=== PATIENT | male | born 1990 | race American Indian/Alaskan Native ===

== ENCOUNTER 2019-03-02 07:13 | Emergency (ER) | payer OTHER ==
[2019-03-02 07:20] VITALS: BP 125/67
--- NOTE | 2019-03-02 07:43 | Emergency Department Report ---
HPI - General Chief Complaint: Dental/Oral Time Seen by Provider: 03/02/19 07:26 - HPI HPI: Patient comes to the ER today complaining of left lower dental pain. He does have a dentist but he cannot get an appointment for several months. He states he knows he needs antibiotics wouldn't want treatment is dental infection. There is no abscess. There is no pharyngeal exudates. ABCs are intact he is afebrile. He is controlling secretions and taking by mouth. ED Past Medical Hx - Past Medical History Previous Medical History?: No - Surgical History Past Surgical History?: No - Social History Smoking Status: Never Smoker Substance Use Type: None - Medications Home Medications: Home Medications Medication Instructions Recorded Confirmed Last Taken Type Amoxicillin [Trimox CAP] 500 mg PO BID #20 capsule 03/02/19 Unknown Rx Naproxen [Naprosyn] 500 mg PO BID PRN #20 tablet 03/02/19 Unknown Rx ED Review of Systems ROS: Stated complaint: (L) SIDE TOOTH ACHE/PAIN Other details as noted in HPI Comment: All other systems reviewed and negative Physical Exam - Physical Exam Vital Signs: Vital Signs 03/02/19 07:18 Temperature 98.1 F Pulse Rate 67 Respiratory 16 Rate Blood Pressure 125/67 O2 Sat by Pulse 100 Oximetry General: - Head Head exam: Present: atraumatic, normocephalic - Eye Eye exam: Present: normal appearance, EOMI. Absent: nystagmus - ENT ENT exam: Present: normal exam, normal orophraynx, mucous membranes moist, normal external ear exam, no lymphadenopathy. Patient is complaining of dental pain around dentition #19 and 20. No abscess. No trismus. Patient is controlling secretions. Patient is taking by mouth. - Neck Neck exam: Present: normal inspection, full ROM. Absent: tenderness, meningismus - Respiratory Respiratory exam: Present: normal lung sounds bilaterally. Absent: respiratory distress, wheezes, rales, rhonchi, stridor, chest wall tenderness, accessory muscle use, decreased breath sounds, prolonged expiratory - Cardiovascular Cardiovascular Exam: Present: regular rate, normal rhythm, normal heart sounds. Absent: bradycardia, tachycardia, irregular rhythm, systolic murmur, diastolic murmur, rubs, gallop, JVD, edema - GI/Abdominal GI/Abdominal exam: Present: soft, non tender on light and deep palpation. Absent: distended, tenderness, guarding, rebound, rigid, pulsatile mass - Rectal Rectal exam: Present: deferred - Extremities Exam Extremities exam: Present: normal inspection, full ROM, other (2+ pulses noted in the bilateral upper extremities. Bilateral lower extremities with 2+ DP bilateral. Full ROM. Absent: calf tenderness - Back Exam Back exam: Present: normal inspection, full ROM. Absent: tenderness, CVA tenderness (R), CVA tenderness (L), paraspinal tenderness, vertebral tenderness - Neurological Exam Neurological exam: Present: alert, oriented X3, normal gait, other (Extraocular movements intact. Tongue midline. No facial droop. Facial sensation intact to light touch in the V1, V2, V3 distribution bilaterally. 5 and 5 strength in 4 extremities.. Sensation is intact to light touch in 4 extremities.). Absent: motor sensory deficit - Psychiatric Psychiatric exam: normal affect and mood - Skin Skin exam: Present: warm, dry, intact, normal color. Absent: rash ED Course Vital Signs 03/02/19 07:18 Temperature 98.1 F Pulse Rate 67 Respiratory 16 Rate Blood Pressure 125/67 O2 Sat by Pulse 100 Oximetry ED Medical Decision Making - Medical Decision Making Simple dental infection without abscess. ABCs intact. Controlling secretions. Taking by mouth. No trismus. Will DC home with discharge plan clear including dental follow-up. Vital Signs 03/02/19 07:18 Temperature 98.1 F Pulse Rate 67 Respiratory 16 Rate Blood Pressure 125/67 O2 Sat by Pulse 100 Oximetry Critical care attestation.: If time is entered above; I have spent that time in minutes in the direct care of this critically ill patient, excluding procedure time. ED Disposition Clinical Impression: Pain, dental Disposition: DC-01 TO HOME OR SELFCARE Is pt being admited?: No Does the pt Need Aspirin: No Condition: Stable Instructions: Dental Caries (ED) Additional Instructions: DIET TOLERATED MEDS ORDERED TODAY IN ER FOLLOW INSTRUCTIONS ON THE BOTTLE FOLLOW UP PCP WITHIN 48 HOURS TO ENSURE YOU ARE GETTING BETTER ACTIVITY TOLERATED MOTRIN OR TYLENOL FOR PAIN OR FEVER RETURN TO THE ER FOR WORSENING SYMPTOMS NOT RELIEVED BY YOUR MEDICATIONS. Referrals: [facility] [Outside] - 3-5 Days [facility] [Outside] - 3-5 Days Forms: Work/School Release Form(ED) Time of Disposition: 07:41
== END 2019-03-02 07:52 | disposition home or self-care (01) ==
LOC: ED 07:13
DX: K08.89 Other specified disorders of teeth and supporting structures (principal)
CPT/HCPCS: 99282